=== PATIENT | female | born 1955 | race Caucasian/White ===

== ENCOUNTER 2017-02-15 07:15 | Inpatient (IN) | payer OTHER ==
[2017-02-18] MEDS ORDERED: ceFAZolin 2 GM/DEXTROSE 100 ML IV ONE (05:46)
[2017-02-18] MEDS ORDERED: fentaNYL 100 MCG/2 ML INJ IT ONE (05:46)
[2017-02-18] MEDS ORDERED: GABAPENTIN 100 MG CAP PO ONE (05:46)
[2017-02-18] MEDS ORDERED: LIDOCAINE 1% 2 ML INJ ID PRN (05:48)
[2017-02-18] MEDS ORDERED: LR 1,000 ML IV ONE (05:48)
[2017-02-18] MEDS ORDERED: GABAPENTIN 300 MG CAP PO ONE ×2 (06:00→06:57)
[2017-02-18] MEDS ORDERED: MIDAZOLAM 2 MG/2 ML VIAL IVP ONE (06:11)
[2017-02-18] MEDS ORDERED: DEXMEDETOMIDINE HCL 400 MCG in NS 100 ML IV SCH (06:30)
[2017-02-18] MEDS ORDERED: DEXAMETHASONE 4 MG/ML VIAL ONE (06:45)
[2017-02-18] MEDS ORDERED: ROCURONIUM 50 MG/5 ML VIAL ONE (06:45)
[2017-02-18] MEDS ORDERED: LIDOCAINE 2% 5 ML SDV ONE (06:45)
[2017-02-18] MEDS ORDERED: THROMBIN (BOVINE) 20,000 UNIT VIAL TP ONE (06:49)
[2017-02-18] MEDS ORDERED: BACITRACIN 50,000 UNITS/10 ML SYR IRR ONE (06:49)
[2017-02-18] MEDS ORDERED: BUPIVACAINE/EPI 0.25% 30 ML SDV ONE (06:49)
--- NOTE | 2017-02-18 07:02 | PDANEPAE ---
ANE History of Present Illness 61 yo female with chronic back pain s/p 4 spinal surgeries, now for hardware replacement in [place]. ANE Past Medical History Past Medical History: No cough, fever, colds in 2 weeks. - Cardiovascular History Hx Hypertension: No Hx Arrhythmias: No Hx Chest Pain: No Hx Coronary Artery / Peripheral Vascular Disease: No Hx CHF / Valvular Disease: No Hx Palpitations: No - Pulmonary History Hx COPD: No Hx Asthma/Reactive Airway Disease: No Hx Recent Upper Respiratory Infection: No Hx Oxygen in Use at Home: No Hx Sleep Apnea: No Sleep Apnea Screening Result - Last Documented: Negative - Neurologic History Hx Cerebrovascular Accident: No Hx Seizures: No Hx Dementia: No Neurologic History Comment: MIGRAINES - Endocrine History Hx Diabetes: Yes Endocrine History Comment: HYPOTHYROID - Renal History Hx Renal Disorders: No - Liver History Hx Hepatic Disorders: No - Neurological & Psychiatric Hx Hx Neurological and Psychiatric Disorders: No - Cancer History Hx Cancer: No - Congenital Disorder History Hx Congenital Disorders: No - GI History GERD Comment: On Prevacid prophylactically due to Meloxicam Hx Gastrointestinal Disorders: Yes Gastrointestinal History Comment: PAST HX ULCER - Other Health History Other Health History: BRUISES EASILY - Chronic Pain History Chronic Pain: Yes (LOW BACK AND HIPS) - Surgical History Prior Surgeries: LUMBAR SURGERY X3. SPINAL FLUID LEAK REPAIR. C SECTION X2. CERVICAL FUSION ANE Review of Systems - Exercise capacity METS (RN): 4 METS - Systems Constitutional: Reports: no symptoms Cardiac: Reports: no symptoms Respiratory: Reports: no symptoms ANE Patient History - Allergies Allergies/Adverse Reactions: acetaminophen [From Percocet] Allergy (Verified 01/11/17 10:44) UPSET STOMACH amoxicillin [From Augmentin] Allergy (Verified 01/11/17 10:44) UPSET STOMACH clavulanic acid [From Augmentin] Allergy (Verified 01/11/17 10:44) UPSET STOMACH metaxalone [From Skelaxin] Allergy (Verified 01/11/17 10:44) UPSET STOMACH morphine Allergy (Verified 02/18/17 07:00) Itching oxycodone [From Percocet] Allergy (Verified 01/11/17 10:44) UPSET STOMACH topiramate [From Topamax] Allergy (Verified 01/11/17 10:44) NUMBNESS - Home Medications Home Medications: Aspirin [Aspirin 81mg (*)] 81 mg PO DAILY 01/11/17 [Last Taken 02/11/17] Atorvastatin Calcium [Lipitor 10 mg (*)] 5 mg PO HS 01/11/17 [Last Taken Unknown ] Diclofenac Sodium 1% [Voltaren Gel (*)] 1 bernardino TP DAILY PRN 01/11/17 [Last Taken Unknown] Gabapentin [Neurontin 300 MG (*)] 600 mg PO TID 01/11/17 [Last Taken Unknown] Herbals/Supplements -Info Only 1 ea PO DAILY 01/11/17 [Last Taken 02/11/17] Hydrocodone/Acetaminophen [Randolph 5/325 (*)] 1 each PO TID 01/11/17 [Last Taken Unknown] Lansoprazole [Prevacid] 30 mg PO DAILY 01/11/17 [Last Taken Unknown] Levothyroxine [Synthroid 75 mcg (*)] 37.5 mcg PO DAILY06 01/11/17 [Last Taken Unknown] Meloxicam 7.5 mg PO DAILY 01/11/17 [Last Taken 02/11/17] Multivitamins [Multivitamin (*)] 1 each PO DAILY 01/11/17 [Last Taken 02/11/17] Sumatriptan Succinate [Imitrex] 100 mg PO DAILY PRN 01/11/17 [Last Taken ] Triamterene/Hydrochlorothiazid [Triamterene-Hctz 37.5-25 mg Tb] 1 each PO DAILY 01/11/17 [Last Taken 02/11/17] Venlafaxine Xr [Effexor Xr 75MG (*)] 150 mg PO DAILY 01/11/17 [Last Taken ] tiZANidine HCL [Zanaflex] 12 mg PO HS 01/11/17 [Last Taken 02/17/17] - NPO status NPO Since - Liquids (Date): 02/17/17 NPO Since - Liquids (Time): 22:00 NPO Since - Solids (Date): 02/17/17 NPO Since - Solids (Time): 19:00 - Smoking Hx Smoking Status: Never smoked - Family Anes Hx Family Hx Anesthesia Complications: NEG ANE Labs/Vital Signs - Labs - CBC WBC: reviewed, no anemia - Labs - BMP Sodium: reviewed. WNL - Vital Signs Vital Signs: reviewed preoperatively; see RN documention for details Height: 157.48 cm Weight: 63.503 kg ANE Physical Exam - Airway Neck exam: decreased ROM (slightly decreased extension due to cervical fusion) Mouth exam: normal dental/mouth exam - Pulmonary Pulmonary: clear to auscultation - Cardiovascular Cardiovascular: regular rate and rhythym - ASA Status ASA Status: III ANE Anesthesia Plan Anesthesia Plan: general endotracheal anesthesia Lines/Monitors: additional IV
--- NOTE | 2017-02-18 07:15 | PDGENHP ---
History and Physical - Chief Complaint back pain, lumbar ddd. Presents today for spine surgery. - History of Present Illness S: Pt resting in bed in pre op. C/o pain and numbness in left hip/buttock area. PMH: hypothyroidism, hypercholesterolemia PSH: prior cervical and lumbar spinal fusion surgeries, x 2 FH: reviewed and unremarkable ROS: Please see above mentioned in HPI O: AAOx3 NAD VSS MAEx4 Motor 5/5 BUE/BLE +LT A: 61 yo F with low back pain, hip pain and SI joint pain. CT and MRI demonstrates adjacent level breakdown at L34 with evidence of bony fusion across prior cages. She is scheduled for revision of prior hardware with removal of L4-S1, L3/4 TLIF and posterior fusion P: To OR today for revision of prior hardware with removal of L4-S1, L3/4 TLIF and posterior fusion Risks/benefits of surgery were discussed and written informed consent was obtained Patient seen by Dr Paredes as well. History Information - Allergies/Home Medication List Allergies/Adverse Reactions: acetaminophen [From Percocet] Allergy (Verified 01/11/17 10:44) UPSET STOMACH amoxicillin [From Augmentin] Allergy (Verified 01/11/17 10:44) UPSET STOMACH clavulanic acid [From Augmentin] Allergy (Verified 01/11/17 10:44) UPSET STOMACH metaxalone [From Skelaxin] Allergy (Verified 01/11/17 10:44) UPSET STOMACH morphine Allergy (Verified 02/18/17 07:00) Itching oxycodone [From Percocet] Allergy (Verified 01/11/17 10:44) UPSET STOMACH topiramate [From Topamax] Allergy (Verified 01/11/17 10:44) NUMBNESS Home Medications: Aspirin [Aspirin 81mg (*)] 81 mg PO DAILY 01/11/17 [Last Taken 02/11/17] Atorvastatin Calcium [Lipitor 10 mg (*)] 5 mg PO HS 01/11/17 [Last Taken Unknown ] Diclofenac Sodium 1% [Voltaren Gel (*)] 1 bernardino TP DAILY PRN 01/11/17 [Last Taken Unknown] Gabapentin [Neurontin 300 MG (*)] 600 mg PO TID 01/11/17 [Last Taken Unknown] Herbals/Supplements -Info Only 1 ea PO DAILY 01/11/17 [Last Taken 02/11/17] Hydrocodone/Acetaminophen [Maxton 5/325 (*)] 1 each PO TID 01/11/17 [Last Taken Unknown] Lansoprazole [Prevacid] 30 mg PO DAILY 01/11/17 [Last Taken Unknown] Levothyroxine [Synthroid 75 mcg (*)] 37.5 mcg PO DAILY06 01/11/17 [Last Taken Unknown] Meloxicam 7.5 mg PO DAILY 01/11/17 [Last Taken 02/11/17] Multivitamins [Multivitamin (*)] 1 each PO DAILY 01/11/17 [Last Taken 02/11/17] Sumatriptan Succinate [Imitrex] 100 mg PO DAILY PRN 01/11/17 [Last Taken ] Triamterene/Hydrochlorothiazid [Triamterene-Hctz 37.5-25 mg Tb] 1 each PO DAILY 01/11/17 [Last Taken 02/11/17] Venlafaxine Xr [Effexor Xr 75MG (*)] 150 mg PO DAILY 01/11/17 [Last Taken ] tiZANidine HCL [Zanaflex] 12 mg PO HS 01/11/17 [Last Taken 02/17/17] I have personally reviewed and updated: family history, medical history, social history, surgical history - Social History Smoking Status: Never smoked
[2017-02-18] MEDS ORDERED: HYDROmorphONE/DILAUDID 2 MG/ML INJ ONE (07:18)
[2017-02-18] MEDS ORDERED: PROPOFOL/EMULSION 500 MG/50 ML BOTTLE IV ONE ×2 (07:18→08:05)
[2017-02-18] MEDS ORDERED: REMIFENTANIL HCL 1 MG VIAL ONE (07:18)
[2017-02-18] MEDS ORDERED: TRANEXAMIC ACID 600 MG in NS 100 ML IV ONE (07:23)
[2017-02-18] MEDS ORDERED: NS IV ONE (07:24)
[2017-02-18] MEDS ORDERED: TRANEXAMIC ACID IV ONE (07:24)
[2017-02-18] MEDS ORDERED: KETAMINE 100 MG/10 ML SYR ONE (07:31)
[2017-02-18] MEDS ORDERED: CITRATE DEXTROSE SOLN 500 ML BAG ONE (08:03)
[2017-02-18] MEDS ORDERED: epHEDrine SULFATE 10 MG/ML SYR ONE (08:33)
[2017-02-18] MEDS ORDERED: fentaNYL 100 MCG/2 ML INJ ONE ×2 (09:52→12:49)
[2017-02-18] MEDS ORDERED: HYDROmorphONE/DILAUDID 1 MG/ML SYR IVP PRN ×3 (10:23→10:48)
[2017-02-18] MEDS ORDERED: NALOXONE HCL 0.4 MG/ML INJ IVP PRN (10:23)
[2017-02-18] MEDS ORDERED: ALBUTEROL 3 ML DEYVIAL IH PRN (10:23)
[2017-02-18] MEDS ORDERED: ACETAMINOPHEN 500 MG TAB PO PRN (10:23)
[2017-02-18] MEDS ORDERED: LR 500 ML IV PRN (10:23)
[2017-02-18] MEDS ORDERED: ONDANSETRON 4 MG/2 ML VIAL ONE (10:24)
[2017-02-18] MEDS ORDERED: PROMETHAZINE HCL 25 MG/ML INJ IVP PRN ×2 (10:29→10:48)
[2017-02-18] MEDS ORDERED: NON-FORMULARY NEW DRUG (Sumatriptan Succinate [Imitrex] 100 MG) PO PRN (10:47)
[2017-02-18] MEDS ORDERED: POLYETHYLENE GLYCOL 3350 17 GM PKT PO PRN (10:48)
[2017-02-18] MEDS ORDERED: ONDANSETRON DISINTEGRATING 4 MG TAB PO PRN (10:48)
[2017-02-18] MEDS ORDERED: HYDROCODONE/APAP 5/325 TAB PO PRN (10:48)
[2017-02-18] MEDS ORDERED: ONDANSETRON 4 MG/2 ML VIAL IVP PRN (10:48)
[2017-02-18] MEDS ORDERED: LACTULOSE 20 GM/30 ML UDCUP PO PRN (10:48)
[2017-02-18] MEDS ORDERED: BISACODYL 10 MG SUPP PR PRN (10:48)
[2017-02-18] MEDS ORDERED: MAGNESIUM HYDROXIDE 30 ML UDCUP PO PRN (10:48)
[2017-02-18] MEDS ORDERED: NS 1,000 ML IV SCH (11:00)
--- NOTE | 2017-02-18 11:02 | POSTOPPROG ---
Post Op Note Date of Operation: 02/18/17 Surgeon: Emily Sheridan Propeller Driven Airplane Mechanic: Santiago Sheridan PA-C Anesthesiologist: Kit Anesthesia: GET(General Endotracheal) Pre-op Diagnosis: lumbar degenerative disc disease Post-op Diagnosis: same Indication: pain, stenosis Procedure: lumbar hardware removal L4-S1 with L34 TLIF and posterior fusion Findings: Please see operative report Inf/Abcess present in the surg proc area at time of surgery?: No Depth: Organ Space EBL: 100-500 Complications: none Drains: Alex Frances Specimen(s): none PA Addendum - Addendum .: S: Pt resting in bed in PACU, denies pain O: Sleeping but awakens easily NAD VSS NO droop MAEx4 Motor 5/5 BUE/BLE Follows all commands Merrick Rosales in A: 61 yo F s/p L4-S1 hardware removal with L34 TLIF and L34 posterior fusion P: PT/OT Pain management Brace when OOB TEDs, SCDs, lovenox POD#1 Post op xrays pending Follow JUAN ALBERTO output CHANDRAKANT rosales in AM Call NS with any questions
[2017-02-18] MEDS: fentaNYL 100 MCG/2 ML INJ IVP PRN ×2 (12:51→13:08)
--- NOTE | 2017-02-18 12:57 | POSTANESTH ---
Post Anesthetic Evaluation Cardiovascular Status: Tx Hyper/Hypo-tension Respiratory Status: Tx Decrease in SpO2 Level of Consciousness/Mental Status: Moderately Sleepy Pain Control: Adequate, Prn Tx Ordered Nausea/Vomiting Control: Adequate, Prn Tx Ordered Complications Possibly Related to Anesthesia: None Noted
[2017-02-18] MEDS ORDERED: SUMAtriptan 50 MG TAB PO PRN (13:48)
[2017-02-18] MEDS ORDERED: morphINE PF 10 MG/10 ML INJ ONE (14:04)
[2017-02-18] MEDS: METHOCARBAMOL 750 MG TAB PO PRN ×2 (14:48→21:48)
[2017-02-18] MEDS: ceFAZolin 2 GM/DEXTROSE 100 ML IV SCH ×2 (14:54→21:48)
[2017-02-18] MEDS: POLYETHYLENE GLYCOL 3350 17 GM PKT PO SCH ×2 (16:26→21:48)
[2017-02-18] MEDS: GABAPENTIN 300 MG CAP PO SCH ×2 (16:28→21:48)
[2017-02-18] MEDS: HYDROmorphONE/DILAUDID 1 MG/ML SYR IVP PRN ×3 (16:45→21:48)
[2017-02-18] MEDS: DIAZEPAM 5 MG TAB PO PRN (18:11)
[2017-02-18] MEDS: HYDROCODONE/APAP 10/325 TAB PO PRN (19:41)
[2017-02-18] MEDS: FAMOTIDINE 20 MG TAB PO SCH (19:51)
[2017-02-18] MEDS: ATORVASTATIN CALCIUM 10 MG TAB PO SCH (19:51)
[2017-02-18] MEDS: SENNOSIDES/DOCUSATE SODIUM TAB PO SCH (19:51)
--- NOTE | 2017-02-18 22:32 | GOP ---
[f rep st] OPERATIVE REPORT DATE OF OPERATION: 02/18/2017 SURGEON: Valdemar Paredes MD ANESTHESIA: General. PREOPERATIVE DIAGNOSIS: 1. L3-L4 adjacent level breakdown and spondylosis with history of prior fusion L4 through S1. 2. Radiculopathy and low back pain. 3. Treatment refractory to nonoperative intervention. POSTOPERATIVE DIAGNOSIS: 1. L3-L4 adjacent level breakdown and spondylosis with history of prior fusion L4 through S1. 2. Radiculopathy and low back pain. 3. Treatment refractory to nonoperative intervention. PROCEDURE PERFORMED: FINDINGS: SPECIMENS: None. ESTIMATED BLOOD LOSS: 150 mL. INDICATIONS: Ms. Stahl is a very pleasant woman who has undergone a prior lumbar fusion L4 throu gh S1 from which she did quite well for several years. She presented with worsening lower extremity radiculopathy and back pain. Had evidence of severe adjacent level breakdown at L3-L4. After fail ing nonoperative interventions, after discussion of the risks, benefits, and treatment alternatives, we decided to proceed forth with surgery as described above. DESCRIPTION OF PROCEDURE: Patient was brought to the operating theater and underwent general endotr acheal anesthesia without complications. She had Venodynes, MANI hose and appropriate lines placed b y Anesthesia. She was then flipped prone onto the Alex table. All bony processes inspected and padded. The previous lumbar incision was identified and prepped and draped in usual sterile surgica l fashion. The incision was infiltrated with Marcaine with epinephrine and taken down with the scal pel blade. Using monopolar, it was then taken down midline through the lumbodorsal fascia to identi fy the spinous process of L3. We then skived off laterally to identify the lateral facet joints and hardware at L4, L5, S1 with care given to preserve the midline laminectomy defect from L4 through S 1. We then explored the prior lumbar fusion L4 through S1, and it was noted to be well fused with b one growth solidly. I then sequentially removed the bilateral pedicle screws and jeannette system from th e L4, L5 and S1 system from the [facility] and passed them off the field. We then replaced the bi lateral L4 screws with 7.5 x 45 mm screws from the [employer] Solera system. We then attached the 3D Stealth navigation clamp to the spinous process of L3 and completed a 3D Stealth navigation spin. Using 3D Stealth navigation, we then placed new sdv pilot/navigator/dds operator holes for the bilateral pedicle screws at L3. The holes were tapped and manually palpated with no sign of any cortical breaches. We then placed 6.5 x 50 mm screws bilaterally at L3, again from the [employer] Solera 4.75 system. Another 3D Steal navigation spin demonstrated good placement of the hardware. At this point, the microscope was brought into the field to assist with microscopic dissection and t o maintain illumination and magnification. Using a combination of bur tip on the drill bit and Martinez luisa punches, we completed a left-sided L3-4 hemilaminotomy with mesial facetectomy and resection of the pars. We completed a foraminotomy and distracted the interspace. We completed left-sided L3-4 diskectomy. We prepared the cartilaginous endplates and measured the interbody space. We then sagrario maxx a 7 x 28 mm titanium PEEK elevated cage with morselized autograft and allograft anteriorly towar d the midline. Very good height distraction. We then packed additional morcellized autograft and a llograft in the disk space interbody fusion. We let down distraction, decorticated the bone on the right side between L3-4. We placed 2 lordotic rods in the heads of the screws between L3-4 for the posterolateral fusion. We secured them down with cap screws which were then tightened per manufactu re's setting. We placed morselized autograft and allograft on the right side between L3-4 for the p osterolateral fusion. We injected preservative-free intrathecal narcotics. We placed a drain in e subfascial space. The wound was then closed in multiple layers using Vicryl sutures for the deep layers and Dermabond for the skin. The patient's wounds were dressed sterilely. She was then flipp ed supine onto the transfer cart. She was awakened, extubated, and taken to recovery room in stable condition. There were no complications and no noted changes on neuromonitoring throughout the procedure. PROCEDURE PERFORMED: 1. Posterior arthrodesis with approach to L3, L4, L5, S1. 2. Exploration of prior lumbar hardware L4 through S1 with subsequent removal from the [employer] system L4 through S1. 3. Placement of posterior bilateral pedicle screws into L3-L4 for the [employer] Solera 4.75 system. 4. Posterolateral fusion on the right between L3-L4 with morselized autograft and allograft. 5. Left-sided L3-L4 hemilaminotomy with mesial facetectomy, foraminotomy, and nerve root decompress ion. 6. Left-sided L3-L4 transforaminal lumbar interbody fusion with a 7 x 28 mm titanium PEEK elevated cage with morselized autograft and allograft. 7. Use of intraoperative 3D Stealth navigation. 8. Use of intraoperative fluoroscopy, less than 1 hour physician time. 9. Use of neuromonitoring. 10. Use of the operating microscope. COMPLICATIONS: None. MANUFACTURING ENGINEER ASSEMBLY: Emily Sheridan PA-C. COMPLICATIONS: None. /[id number]/MODL
[2017-02-19] MEDS: HYDROCODONE/APAP 10/325 TAB PO PRN ×4 (03:14→20:17)
[2017-02-19] MEDS ORDERED: NS 500 ML IV ONE (05:00)
[2017-02-19] MEDS: LEVOTHYROXINE 75 MCG TAB PO SCH (05:09)
[2017-02-19] MEDS: ENOXAPARIN 40 MG/0.4 ML SYR SC SCH (08:28)
[2017-02-19] MEDS: POLYETHYLENE GLYCOL 3350 17 GM PKT PO SCH ×3 (08:29→20:13)
[2017-02-19] MEDS: SENNOSIDES/DOCUSATE SODIUM TAB PO SCH ×2 (08:29→20:13)
[2017-02-19] MEDS: VENLAFAXINE XR 75 MG CAP PO SCH (08:29)
[2017-02-19] MEDS: GABAPENTIN 300 MG CAP PO SCH ×3 (08:29→20:17)
[2017-02-19] MEDS: MULTIVITAMINS 1 EACH TAB PO SCH (08:30)
[2017-02-19] MEDS: FAMOTIDINE 20 MG TAB PO SCH ×2 (08:30→20:15)
[2017-02-19] MEDS: PANTOPRAZOLE SODIUM 40 MG TAB PO SCH (08:31)
[2017-02-19] MEDS: METHOCARBAMOL 750 MG TAB PO PRN ×2 (08:31→16:40)
[2017-02-19] MEDS: TRIAMTERENE/HCTZ 37.5/25 1 EACH TAB PO SCH (08:35)
[2017-02-19] MEDS ORDERED: LANSOPRAZOLE SUSP 3 MG/ML UDSYR (Peds) PO SCH (09:00)
--- NOTE | 2017-02-19 09:56 | NEUSURGPN ---
Assessment/Plan: A: 61 yo F s/p L4-S1 hardware removal with L34 TLIF and L34 posterior fusion - POD#1 P: PT/OT Pain management - will add MS contin. Per patient she has only had itching with intrathecal morphine and has tolerated PO morphine. If she c/o pruritis will DC. Brace when OOB TEDs, SCDs, lovenox POD#1 Post op xrays pending Follow JUAN ALBERTO output - continue Rodriguez out Call NS with any questions Subjective: Pt resting in bed, c/o low back pain. States it is a 7 at rest on 1-10 scale with 10 being the worst pain imaginable. Objective: AAOx3 NAD VSS MAEx4 Motor 5/5 BLE +LT JUAN ALBERTO with serosanguineous dc in bulb Urinary Catheter in Place: No Catheter Insertion Date: 02/18/17 Neurosurgery Physical Exam - Vitals, I&O, Labs I and O 02/18/17 02/19/17 02/20/17 05:59 05:59 05:59 Intake Total 3500 Output Total 1795 45 Balance 1705 -45 Weight 63.503 kg Intake: Oral (ml) 550 IV Intake (ml) 1600 IV Infused (ml) 1350 Ns 1,000 ml @ 75 mls/hr 1250 IV CONT ELVIS Rx#: [id number] ceFAZolin 2 GM/DEXTROSE 100 100 ml @ 200 mls/hr IV Q8HRS ELVIS Rx#:[id number] Output: Urine (ml) 1575 Catheter 1575 JUAN ALBERTO Drain Output (ml) 220 45 #1 Right Back Alex 150 45 Frances Right Posterior Back 70 Alex Frances Vital Signs Temp Pulse Resp BP Pulse Ox 36.6 C 73 16 104/70 97 02/19/17 07:17 02/19/17 07:17 02/19/17 07:17 02/19/17 08:35 02/19/17 07:17 ICD10 Worksheet Patient Problems: Problems Problem Status Onset Lumbar degenerative disc disease Acute - ICD10 Problem Qualifiers (1) Lumbar degenerative disc disease
[2017-02-19] MEDS: HYDROmorphONE/DILAUDID 1 MG/ML SYR IVP PRN ×3 (10:17→16:39)
[2017-02-19] MEDS: morphINE SR 15 MG TAB PO SCH ×2 (10:17→20:15)
[2017-02-19] MEDS: DIAZEPAM 5 MG TAB PO PRN (12:10)
[2017-02-19] MEDS: diphenhydrAMINE 25 MG CAP PO PRN (20:13)
[2017-02-19] MEDS: ATORVASTATIN CALCIUM 10 MG TAB PO SCH (20:14)
[2017-02-20] MEDS: HYDROCODONE/APAP 10/325 TAB PO PRN ×3 (02:52→18:19)
[2017-02-20] MEDS: DIAZEPAM 5 MG TAB PO PRN ×2 (02:52→20:00)
[2017-02-20] MEDS: LEVOTHYROXINE 75 MCG TAB PO SCH (06:13)
[2017-02-20] MEDS: MULTIVITAMINS 1 EACH TAB PO SCH (08:38)
[2017-02-20] MEDS: morphINE SR 15 MG TAB PO SCH ×2 (08:38→19:59)
[2017-02-20] MEDS: PANTOPRAZOLE SODIUM 40 MG TAB PO SCH (08:38)
[2017-02-20] MEDS: VENLAFAXINE XR 75 MG CAP PO SCH (08:38)
[2017-02-20] MEDS: GABAPENTIN 300 MG CAP PO SCH ×2 (08:38→15:25)
[2017-02-20] MEDS: ENOXAPARIN 40 MG/0.4 ML SYR SC SCH (08:38)
[2017-02-20] MEDS: FAMOTIDINE 20 MG TAB PO SCH ×2 (08:38→19:59)
[2017-02-20] MEDS: METHOCARBAMOL 750 MG TAB PO PRN (08:39)
[2017-02-20] MEDS ORDERED: tiZANidine HCL 2 MG TAB PO PRN (08:54)
[2017-02-20] MEDS ORDERED: NS 500 ML IV ONE (08:54)
[2017-02-20] MEDS: SENNOSIDES/DOCUSATE SODIUM TAB PO SCH ×2 (10:13→20:01)
[2017-02-20] MEDS: POLYETHYLENE GLYCOL 3350 17 GM PKT PO SCH ×2 (10:13→15:05)
[2017-02-20] MEDS: TRIAMTERENE/HCTZ 37.5/25 1 EACH TAB PO SCH (10:13)
--- NOTE | 2017-02-20 10:17 | NEUSURGPN ---
Assessment/Plan: A: 61 yo F s/p L4-S1 hardware removal with L34 TLIF and L34 posterior fusion - POD#2 P: PT/OT Pain management - continue current regimen Brace when OOB TEDs, SCDs, lovenox Post op xrays show stable hardware DC JUAN ALBERTO drain Call NS with any questions Dispo- home later today vs tomorrow pending clinical course Subjective: Pt resting in bed, states she was able to sleep last night ok. Objective: AAOx3 NAD VSS MAEx4 Motor 5/5 BUE/BLE +LT Incision dressed cdi JPx1 Urinary Catheter in Place: No Catheter Insertion Date: 02/18/17 Neurosurgery Physical Exam - Vitals, I&O, Labs I and O 02/19/17 02/20/17 02/21/17 05:59 05:59 05:59 Intake Total 3500 350 Output Total 1795 125 50 Balance 1705 225 -50 Weight 63.503 kg Intake: Oral (ml) 550 350 IV Intake (ml) 1600 IV Infused (ml) 1350 Ns 1,000 ml @ 75 mls/hr 1250 IV CONT ELVIS Rx#: [id number] ceFAZolin 2 GM/DEXTROSE 100 100 ml @ 200 mls/hr IV Q8HRS ELVIS Rx#:[id number] Output: Urine (ml) 1575 Catheter 1575 JUAN ALBERTO Drain Output (ml) 220 125 50 #1 Right Back Alex 150 125 50 Frances Right Posterior Back 70 Alex Frances Other: Number of Voids Incontinence 1 2 Toilet 3 Number of Stools Incontinence 1 2 Vital Signs Temp Pulse Resp BP Pulse Ox 36.6 C 88 16 97/52 L 95 02/20/17 07:30 02/20/17 07:30 02/20/17 07:30 02/20/17 10:13 02/20/17 07:30 ICD10 Worksheet Patient Problems: Problems Problem Status Onset Lumbar degenerative disc disease Acute - ICD10 Problem Qualifiers (1) Lumbar degenerative disc disease
[2017-02-20] MEDS: diphenhydrAMINE 25 MG CAP PO PRN (15:25)
[2017-02-20] MEDS: ATORVASTATIN CALCIUM 10 MG TAB PO SCH (19:58)
[2017-02-21] MEDS: HYDROCODONE/APAP 10/325 TAB PO PRN ×3 (00:09→12:25)
[2017-02-21] MEDS: GABAPENTIN 300 MG CAP PO SCH ×2 (00:10→08:11)
[2017-02-21] MEDS: POLYETHYLENE GLYCOL 3350 17 GM PKT PO SCH ×2 (01:45→10:47)
[2017-02-21] MEDS: LEVOTHYROXINE 75 MCG TAB PO SCH (05:36)
[2017-02-21 07:54] VITALS: O2SAT 90
[2017-02-21] MEDS: morphINE SR 15 MG TAB PO SCH (08:11)
[2017-02-21] MEDS: PANTOPRAZOLE SODIUM 40 MG TAB PO SCH (08:11)
[2017-02-21] MEDS: FAMOTIDINE 20 MG TAB PO SCH (08:11)
[2017-02-21] MEDS: MULTIVITAMINS 1 EACH TAB PO SCH (08:11)
[2017-02-21] MEDS: diphenhydrAMINE 25 MG CAP PO PRN (08:12)
[2017-02-21] MEDS: ENOXAPARIN 40 MG/0.4 ML SYR SC SCH (08:15)
--- NOTE | 2017-02-21 08:35 | NEUSURGPN ---
Assessment/Plan: A: 61 yo F s/p L4-S1 hardware removal with L34 TLIF and L34 posterior fusion - POD#3 P: PT/OT Pain management - continue current regimen Brace when OOB TEDs, SCDs, lovenox Post op xrays show stable hardware Call NS with any questions Dispo- Plan for later today. Patient was seen by Dr. Paredes and myself Subjective: low back and hip pain. Denies any new leg pain, numbness, tingling or weakness. Objective: NAD A&Ox3 MAEx4 5/5 and equal in BUE and BLE. Incision c/d/i Catheter Insertion Date: 02/18/17 - Physician Patient Seen by : Lena Neurosurgery Physical Exam - Vitals, I&O, Labs I and O 02/20/17 02/21/17 02/22/17 05:59 05:59 05:59 Intake Total 350 1800 Output Total 125 50 Balance 225 1750 Intake: Oral (ml) 350 1800 Output: JAUN ALBERTO Drain Output (ml) 125 50 #1 Right Back Alex 125 50 Frances Other: Intake Quantity Yes Sufficient Number of Voids Incontinence 1 2 Toilet 3 1 Number of Stools Incontinence 1 2 Toilet 1 Vital Signs Temp Pulse Resp BP Pulse Ox 36.9 C 80 16 94/57 L 90 L 02/21/17 07:48 02/21/17 07:48 02/21/17 07:48 02/21/17 07:48 02/21/17 07:48 ICD10 Worksheet Patient Problems: Problems Problem Status Onset Lumbar degenerative disc disease Acute
[2017-02-21] MEDS: SENNOSIDES/DOCUSATE SODIUM TAB PO SCH (10:47)
[2017-02-21] MEDS: VENLAFAXINE XR 75 MG CAP PO SCH (10:48)
[2017-02-21] MEDS: TRIAMTERENE/HCTZ 37.5/25 1 EACH TAB PO SCH (10:48)
[2017-02-21 11:42] VITALS: BP 121/65; PULSE 82; RESP 14; TEMP 97.8
[2017-02-21] MEDS: HYDROmorphONE/DILAUDID 1 MG/ML SYR IVP PRN (13:22)
== END 2017-02-21 13:31 | disposition home or self-care (01) | DRG 460 ==
LOC: F3N 02-18 05:40
PROVIDERS: ADMIT Neurological Surgery; ATTEND Neurological Surgery
DX: M47.26 Other spondylosis with radiculopathy, lumbar region (principal); G43.909 Migraine, unspecified, not intractable, without status migrainosus; E03.9 Hypothyroidism, unspecified; Z98.1 Arthrodesis status
CPT/HCPCS: 97116-GP; 97161-GP; 97165-GO; 97530-GP; 97535-GO; C1713; C1762; J0690; J1100; J1170; J1650; J2250; J2274; J2405; J2704; J3010; J7060